=== PATIENT | female | born 2000 | race Caucasian/White ===

== ENCOUNTER 2023-06-06 02:31 | Outpatient (CLI) | payer BC, SELFPAY | END 2023-06-06 02:32 | disposition home or self-care (01) | LOC: AMB 06-09 01:24 | PROVIDERS: Visit Provider Internal Medicine | DX: R45.851 Suicidal ideations (principal); S61.512A Laceration without foreign body of left wrist, initial encounter | CPT/HCPCS: A0425; A0429 ==